=== PATIENT | female | born 1970 | race Caucasian/White ===

== ENCOUNTER 2017-01-21 20:59 | Emergency (ER) | payer MEDICAID ==
[2017-01-21 21:04] VITALS: BP 157/96
[2017-01-21] MEDS ORDERED: CLINDAMYCIN 150 MG CAPSULE PO STA (21:19)
--- NOTE | 2017-01-21 21:23 | ED Physician Documentation ---
PD HPI HEENT - Stated complaint Stated Complaint: EAR PX - Chief complaint Chief Complaint: Heent - History obtained from History obtained from: Patient - History of Present Illness Timing - duration: Weeks (2) Timing - details: Still present Location: Right ear, Other (Right cheek.) Associated symptoms: Headache (chronically). No: Fever - Additional information Additional information: The patient is a 46-year-old female with history of PTSD and anxiety disorder, who presents with right earache and painful swelling of her right cheek. Her symptoms started 2 weeks ago and have been waxing and waning since that time. She has noticed a "pea-sized lump" in her right cheek. It is painful to palpation. She denies fever, toothache, or difficulty swallowing. She reports chronic headache. She was treated for otitis media one month ago with Augmentin. Review of Systems Constitutional: denies: Fever Eyes: denies: Irritation Ears: reports: Ear pain (right ear) Nose: denies: Congestion Throat: reports: Oral lesions / sores (right cheek). denies: Dental pain / toothache, Sore throat Cardiac: denies: Chest pain / pressure Respiratory: denies: Dyspnea, Cough GI: reports: Nausea. 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, Tubal ligation - Present Medications Home Medications: Ambulatory Orders Medication Instructions Recorded Confirmed Albuterol Sulf [Ventolin Hfa 1 - 2 puffs INH Q4HR PRN #1 inhaler 02/24/16 Inhaler] Azithromycin [Zithromax] 250 mg PO DAILY #6 tablet 02/24/16 Benzonatate [Tessalon] 100 - 200 mg PO TID PRN #20 capsule 02/24/16 Clindamycin [Cleocin] 300 mg PO Q6H 7 Days #56 capsule 01/21/17 - Allergies Allergies/Adverse Reactions: Allergies Allergy/AdvReac Type Severity Reaction Status Date / Time naproxen Allergy Severe Respiratory Verified 02/24/16 09:22 aspirin Allergy Respiratory Verified 02/24/16 09:22 - Social History Does the pt smoke?: Yes Smoking Status: Current every day smoker Does the pt drink ETOH?: No Does the pt have substance abuse?: No - Immunizations Immunizations are current?: Yes - POLST Patient has POLST: No PD ED PE NORMAL - Vitals Vital signs reviewed: Yes (Initially hypertensive.) - General General: Alert and oriented X 3, Well developed/nourished - HEENT HEENT: Atraumatic, EOMI, Ears normal, Pharynx benign, Other (There is mild right facial swelling in the parotid gland region, with small tender lump along the parotid duct. There is no tenderness to palpation of her dentition, and no erythema or warmth of the facial soft tissue.) - Neck Neck: Supple, no meningeal sign, No adenopathy, No JVD - Cardiac Cardiac: RRR, No murmur - Respiratory Respiratory: No respiratory distress, Clear bilaterally - Abdomen Abdomen: Soft, Non tender - Back Back: No CVA TTP - Derm Derm: No rash - Extremities Extremities: No edema, No calf tenderness / cord - Neuro Neuro: Alert and oriented X 3, No motor deficit, Normal speech Results - Vitals Vitals: Oxygen O2 Source Room air PD MEDICAL DECISION MAKING - ED course Complexity details: reviewed results, considered differential, d/w patient ED course: The patient's presentation is most consistent with parotitis. Her examination does not reveal evidence of a dental abscess or ear infection. There is no evidence of peritonsillar abscess. Treatment in the emergency department included administration of clindamycin 300 mg orally. She is being discharged with prescription for clindamycin. I discussed with her the expected course of illness, antibiotic treatment and outpatient follow-up, as well as potentially worrisome signs or symptoms that should prompt reevaluation in the emergency department. Departure - Departure Disposition: 01 Home, Self Care Clinical Impression: Parotitis Condition: Stable Instructions: ED Submandibular Gland Infec Prescriptions: Clindamycin [Cleocin] 300 mg PO Q6H 7 Days #56 capsule Comments: Take clindamycin 4 times daily as prescribed. Eat probiotic yogurt while on antibiotic therapy. You can use Tylenol, up to 1000 mg 4 times daily if needed for fever or discomfort. Follow up with your primary physician within 2 weeks. Call to schedule appointment. Return to the emergency department if you develop increasing facial swelling, increasing pain, difficulty swallowing, or otherwise worsening symptoms. Discharge Date/Time: 01/21/17 21:32
[2017-01-21] MEDS ORDERED: CLINDAMYCIN 150 MG CAPSULE PO ONE (21:26)
== END 2017-01-21 21:32 | disposition home or self-care (01) ==
LOC: ED 20:59
DX: K11.20 Sialoadenitis, unspecified (principal); F17.200 Nicotine dependence, unspecified, uncomplicated
CPT/HCPCS: 99282; 99283; A9270